=== PATIENT | female | born 1940 | race Caucasian/White ===

== ENCOUNTER 2017-03-11 08:44 | Day surgery (SDC) | payer MEDICARE, SELFPAY ==
[2017-03-11] VITALS (7 sets, daily range): BP systolic 113–131; BP diastolic 54–69; PULSE 58–64; RESP 16–18; TEMP 36.1–36.4; O2SAT 94–100; BMI 32.3
--- NOTE | 2017-03-11 08:59 | EKG12_ITS ---
Test Reason : PREOP Blood Pressure : / mmHG Vent. Rate : 060 BPM Atrial Rate : 060 BPM P-R Int : 158 ms QRS Dur : 072 ms QT Int : 422 ms P-R-T Axes : 046 007 028 degrees QTc Int : 422 ms Normal sinus rhythm Low voltage QRS Abnormal ECG Confirmed by DESTINY ALEGRE ([id number]), editor house organ BRITTNEY MCMAHAN ([id number] on 03/17/2017 1:28:12 PM Referred By: Barry Lares Confirmed By:DESTINY ALEGRE
[2017-03-11] MEDS: Bupivacaine Mpf 0.5% 30 ML VIAL (09:04)
[2017-03-11 09:15] LABS: Hematocrit 37.5 % (37-47); Hemoglobin 12.2 g/dl (12.0-15.0); Mean Corp Hgb Conc 32.5 g/gl (32-36); Mean Corpuscular Volume 92.4 fL (81-99); Platelet Count 213 K/mm3 (150-450); RBC Distribution Width CV 12.8 % (11.6-14.6); RBC Distribution Width SD 42.2 fl (35.1-43.9); Red Blood Count 4.06 M/mm3 (4.2-5.4); White Blood Count 5.7 K/mm3 (4.4-11.0)
[2017-03-11 09:18] LABS: Scan Indicated on CBC? Y/N NO
[2017-03-11 09:28] LABS: Anion Gap 7 (5-15); BUN 16 mg/dL (7-18); BUN/Creat Ratio 13.9 RATIO (10-20); Calcium,Total 9.2 mg/dL (8.5-10.1); Chloride 107 mmol/L (98-107); Creatinine, Serum 1.15 mg/dL (0.55-1.02); EST Glomerular Filtration Rate 49 mL/min (>60); Est Glom Filt Rate - Afr Amer 59 mL/min (>60); Glucose 128 mg/dL (70-110); Potassium 5.2 mmol/L (3.5-5.1); Sodium Level 141 mmol/L (136-145)
--- NOTE | 2017-03-11 09:59 | PCM.DC.GS ---
Discharge Diet: Light diet - advance as tolerated - if you have questions about your diet instructions, please talk to you doctor. Discharge Activity: May Not Drive - for 1 week or while taking narcotic pain medicine. May shower in (days): 1 Lifting Restrictions: 10 pounds Call your doctor if your incision/area has: Continuous Slow Oozing, Sudden Increased Bleeding, Increased Pain/ Swelling, Increased Redness, Foul Smelling Discharge Call your doctor if you observe: Fever of 101 or Higher Suture Line Care: Avoid Pulling/Pushing, Avoid Pinching/Bending Additional Dressing/Incision Instructions:: Change or remove dressing in 4 days. Leave steri-strips in place for 1 week. Allergies/Adverse Reactions: Allergies nitrofurantoin [From Macrodantin] Adverse Reaction (Verified 03/10/17 08:59) Other Medications to take at Discharge Biotin 5,000 mcg PO DAILY 01/31/17 Cholecalciferol (Vitamin D3) [Vitamin D3] 1,000 unit PO DAILY 01/31/17 Folic Acid 0.4 mg PO DAILY@0800 01/31/17 Gabapentin [Neurontin] 300 mg PO BID 01/31/17 Insulin Glargine,Hum.rec.anlog [Lantus] 20 unit SQ DAILY 01/31/17 Iron Carbonyl [Feosol] 45 mg PO DAILYCM 01/31/17 Lactobacillus Combo No.10 [Probiotic] 1 ea PO DAILY 01/31/17 Losartan Potassium 50 mg PO DAILY 01/31/17 Magnesium 400 mg PO DAILY 01/31/17 Metformin HCl [Metformin HCl ER] 750 mg PO BID 01/31/17 Multivitamin [Daily Multiple Vitamin] 1 ea PO DAILY 01/31/17 Omeprazole 40 mg PO DAILY 01/31/17 Pravastatin [Pravachol] 40 mg PO QHS 01/31/17 Ubidecarenone/Vit E Acetate [Co Q-10 100 mg Softgel] 1 ea PO DAILY 01/31/17 Verapamil HCl [Verapamil ER] 240 mg PO DAILY 01/31/17 Vitamin B Complex 1 ea PO DAILY 01/31/17 Adult Low Dose Aspirin EC 81 mg PO DAILY 03/08/17 Lidocaine/Prilocaine [Lidocaine-Prilocaine Cream] 30 gm TP DAILY PRN PRN #1 cream..g. 03/08/17 Ondansetron HCl [Zofran] 4 mg PO Q8H PRN PRN #30 tab 03/08/17 Om-3/Epa/Dha/Fish Oil/Flax/E [Thera Tears Nutrition Capsule] 1 each PO BID 03/10/17 Hydrocodone Bitart/Apap 5-325 [[place] 5MG-325MG] 1 tablet PO Q6H PRN PRN #6 tablet 03/11/17 The following prescriptions were given: Hydrocodone Bitart/Apap 5-325 [[place] 5MG-325MG] 1 tablet PO Q6H PRN PRN #6 tablet PRN Reason: Pain Primary Care Physician: Aiden Diaz [Primary Care Provider] - Please Follow Up With: Barry Lares MD - [phone] When: You may schedule a post op appointment if concerns arise please
[2017-03-11] MEDS: Cefazolin 2 GM in Syringe IV (10:02)
--- NOTE | 2017-03-11 10:42 | OP.PCM_ITS ---
Problem List (1) Primary cancer of left female breast Status: Acute Report of Operation Date of Procedure: 03/11/17 Pre-Operative Diagnosis: Left breast cancer Post-Operative Diagnosis: Left breast cancer Surgery/Procedure Performed:: Right internal jugular 6 Malaysian PowerPort placement Description of Surgical Findings:: Right internal jugular 6 Malaysian PowerPort placement Timeout and informed consent was obtained. 76-year-old female was taken the operative placement table. Ancef 2 g are given intravenously preoperatively. The right neck and chest were sterilely prepped and draped. 1% lidocaine mixed 50-50 with 0.5% Marcaine was used as a local anesthetic. Throughout the procedure total 20 cc was used. Under ultrasound guidance local was instilled and a micropuncture needle was inserted in the right internal jugular vein. Micropuncture wire inserted. Fluoroscopy demonstrated good position. Then local was instilled down upon the right anterior chest wall. Local was instilled. A transverse incision created and electrocautery dissection was used to create a subtenons pocket. The tubing was tunneled from the chest to the neck. Then micropuncture sheath was replaced over the micropuncture wire. 035 J-wire was inserted. The 6 Malaysian short sheath dilator was inserted. The dilator and wire removed the catheter was advanced to the sheath the sheath was split the catheter was positioned at the SVC atrial junction. The cath was amputated to length and connected to the port secured to the port attachment device. The port was secured in the pocket with interrupted 2-0 silk. The pocket was closed with interrupted 3-0 Vicryl subdermal stitches. The neck was closed with interrupted 5-0 Vicryl. Steri-Strips Telfa OpSite dressings applied. Sponge instrument and needle counts were reported to the surgeon be correct. Blood loss was minimal. She tired procedure well. The port was accessed was flushed with saline and flushed easily and it was flushed with 2 cc of heparinized saline. Blood loss minimal. Specimens none. Drains none. Stat portable chest x-ray is pending. Barry Lares M.D., F.A.C.S. Type of Anesthesia:: Local MAC Anesthesiologist: Fede Velarde
--- NOTE | 2017-03-11 10:50 | RAD_ITS ---
STUDY: X-RAY CHEST REASON FOR EXAM: Female, 76 years old. Port placement. TECHNIQUE: Single AP portable view of the chest. COMPARISON: Comparison is made with prior study dated February 01, 2017. FINDINGS: A right-sided portacatheter has been placed. The tip is in the proximal portion of the superior vena cava. Scattered calcified granulomas. No acute abnormality is seen. There is no demonstrated pleural abnormality. Normal size heart. Normal mediastinum and becka. Normal visualized pulmonary arteries. There is atherosclerotic tortuosity of the aortic arch and descending thoracic aorta. There are diffuse degenerative changes of the visualized thoracic spine. Normal visualized ribs, clavicles, and shoulders. There is no demonstrated abnormality of the visualized soft tissue structures of the upper abdomen. RAD/Chest 1 View (Portable) IMPRESSION: The tip of the right portacatheter is in the proximal portion of the superior vena cava. Electronically Signed: Hernan Cruz MD at 11:53 EST Tel [phone], Service support ,
== END 2017-03-11 12:35 | disposition home or self-care (01) ==
LOC: SDC 08:44 → AC 08:49
PROVIDERS: Anesthesiology; Family Provider Family Medicine; PCP Family Medicine; Visit Provider Surgery
PROC: (CPT 36561; principal; 2017-03-11 09:00)
DX: C50.912 Malignant neoplasm of unspecified site of left female breast (principal); I49.9 Cardiac arrhythmia, unspecified; I10 Essential (primary) hypertension; K21.9 Gastro-esophageal reflux disease without esophagitis; E11.9 Type 2 diabetes mellitus without complications; Z79.4 Long term (current) use of insulin; Z79.82 Long term (current) use of aspirin; Z79.899 Other long term (current) drug therapy
CPT/HCPCS: 36561; 36415; 71045; 77001; 80048; 85027; 93005; J7120; C1769; C1788

== ENCOUNTER 2017-06-10 19:45 | Emergency (ER) | payer MEDICARE, OTHER, SELFPAY ==
--- NOTE | 2017-06-10 20:35 | RAD_ITS ---
STUDY: X-RAY CHEST REASON FOR EXAM: Female, 76 years old. Fever TECHNIQUE: Frontal and lateral views of the chest COMPARISON: 03/11/2017 FINDINGS: There is a right-sided port with its tip in the superior vena cava. The lungs are clear. There are no pleural effusions. There is no pneumothorax. The heart is normal in size. The visualized osseous structures are within normal limits. RAD/Chest PA and Lateral IMPRESSION: No acute thoracic pathology. Electronically Signed: Nilton De La Rosa, at 21:04 EDT Tel , Service support ,
[2017-06-10 23:31] LABS: Mucous, Urine 0 SEEN /hpf (<or=2+); Red Blood Cells-Urine 0 SEEN /hpf (0-5); Squamous Epithelial Cells - UA 0 SEEN /hpf (5-10)
[2017-06-10 23:34] LABS: Color, Urine Yellow (Yellow); Glucose, Dipstick Normal (Normal); Ketone-Dipstick Negative (Negative); Urine Bilirubin Dipstick Negative (Negative); Urine Clarity Clear (Clear)
[2017-06-10 23:35] LABS: Bacteria RARE /hpf (None Seen); Leukocyte Esterase-Dipstick 500 /ul (Negative); Nitrite-Dipstick Negative (Negative); Occult Blood-Urine 10 /ul (Negative); Protein-Dipstick Negative (Negative); Urine Urobilinogen Normal (Normal); White Blood Cells 5-10 SEEN /hpf (0-5)
--- NOTE | 2017-06-11 00:29 | ED.VISSUMM ---
- ER Visit Summary Date of Service: 06/11/17 Chief Complaint: Fever History of Present Illness: The patient is a 76 F presents with reported chills today. Subjective fever, T-max 99.7 orally prior to arrival. No meds taken. Patient history of breast cancer on the left, chemo started March 14. She is on her fifth treatment, last treatment was a new treatment. She was given Neulasta 2 days ago. No cough. No urinary symptoms. States has generalized weakness and arthralgias in her knees. History of bilateral total knee arthroplasty. No rash. She did not contact her oncologist, Dr. Cisneros prior to coming. Did report mild sore throat with treatment. Physical Examination: General: Alert and oriented ?3, no acute distress HEENT: Normocephalic, atraumatic. Moist mucosa membranes. Mild posterior pharyngeal erythema. No trismus. Airway patent. Neck: supple, nontender. Cardiovascular: Regular rate and rhythm, no murmurs Respiratory: Normal breath sounds, symmetric, no distress Abdomen: Soft, nontender, nondistended Extremities: Nontender, no edema, pulses intact ?4 Neuro: no focal neurological deficits. Test Results: White count 10.3. Absolute neutrophil 10.2. Bands of 6. Chest x-ray negative. Urine noted 500 leukocytes white blood cell count 5-10. Blood and urine cultures pending. Emergency Department Course and Treatment: Patient latter-day 99.1 here in the ED. Not technicalyl fever. However with recent chemo, patient neutropenic workup. Results noted findings of urine infection along with 6 of bands. Absolute neutrophils 10.2. Mild redness in the throat. 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 I did end up speaking with nurse practitionerAdela at 0028. She does agree with starting Levaquin for 7 days. Patient will call the office on Tuesday for follow-up. She return if any worsening symptoms. Treatment Plan: [] Disposition: Discharge Impression: 1. UTI 2. Chemotherapy This note was generated with Lopolyation software. It may contain incorrect words, spelling, and punctuation that were not noted in review of the chart prior to signing ED Disposition - Plan for ED Patient: Disposition: Home or Assisted Living Diagnosis: UTI (urinary tract infection), Chemotherapy management, encounter for Instructions: Understanding Chemotherapy Prescriptions: levoFLOXacin tablet [Levaquin tablet] 750 mg PO DAILY #6 tablet Referrals: Aiden Diaz [Primary Care Provider] - Rachna Cisneros MD [STAFF PHYSICIAN] - 3-5 Days
--- NOTE | 2017-06-11 00:32 | ED.DCSUM_ITS ---
- ER Visit Summary Date of Service: 06/11/17 Chief Complaint: Fever History of Present Illness: The patient is a 76 F presents with reported chills today. Subjective fever, T-max 99.7 orally prior to arrival. No meds taken. Patient history of breast cancer on the left, chemo started March 14. She is on her fifth treatment, last treatment was a new treatment. She was given Neulasta 2 days ago. No cough. No urinary symptoms. States has generalized weakness and arthralgias in her knees. History of bilateral total knee arthroplasty. No rash. She did not contact her oncologist, Dr. Cisneros prior to coming. Did report mild sore throat with treatment. Physical Examination: General: Alert and oriented ?3, no acute distress HEENT: Normocephalic, atraumatic. Moist mucosa membranes. Mild posterior pharyngeal erythema. No trismus. Airway patent. Neck: supple, nontender. Cardiovascular: Regular rate and rhythm, no murmurs Respiratory: Normal breath sounds, symmetric, no distress Abdomen: Soft, nontender, nondistended Extremities: Nontender, no edema, pulses intact ?4 Neuro: no focal neurological deficits. Test Results: White count 10.3. Absolute neutrophil 10.2. Bands of 6. Chest x -ray negative. Urine noted 500 leukocytes white blood cell count 5-10. Blood and urine cultures pending. Emergency Department Course and Treatment: Patient episcopal 99.1 here in the ED. Not technicalyl fever. However with recent chemo, patient neutropenic workup. Results noted findings of urine infection along with 6 of bands. Absolute neutrophils 10.2. Mild redness in the throat. 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 I did end up speaking with nurse practitionerAdela at 0028. She does agree with starting Levaquin for 7 days. Patient will call the office on Tuesday for follow-up. She return if any worsening symptoms. Treatment Plan: [] Disposition: Discharge Impression: 1. UTI 2. Chemotherapy This note was generated with Rate Solutionsation software. It may contain incorrect words, spelling, and punctuation that were not noted in review of the chart prior to signing ED Disposition - Plan for ED Patient: Disposition: Home or Assisted Living Diagnosis: UTI (urinary tract infection), Chemotherapy management, encounter for Instructions: Understanding Chemotherapy Prescriptions: levoFLOXacin tablet [Levaquin tablet] 750 mg PO DAILY #6 tablet Referrals: Aiden Diaz [Primary Care Provider] - Rachna Cisneros MD [STAFF PHYSICIAN] - 3-5 Days
[2017-06-11 01:31] LABS: Hematocrit 32.9 % (37-47); Hemoglobin 11.1 g/dl (12.0-15.0); Mean Corp Hgb Conc 33.7 g/gl (32-36); Mean Corpuscular Hgb 32.3 pg (27.0-32.0); Mean Corpuscular Volume 95.6 fL (81-99); Mean Platelet Vol. 9.5 fl (6.2-12.0); POSITIVE COUNT YES; POSITIVE DIFFERENTIAL YES; POSITIVE MORPHOLOGY YES; Platelet Count 122 K/mm3 (150-450); RBC Distribution Width CV 16.6 % (11.6-14.6); RBC Distribution Width SD 55.7 fl (35.1-43.9); Red Blood Count 3.44 M/mm3 (4.2-5.4); White Blood Count 10.2 K/mm3 (4.4-11.0)
[2017-06-11 01:32] LABS: Absolute Neutrophil Count 10.2 X10^3/uL (2.0-7.7); Anion Gap 10 (5-15); BUN 30 mg/dL (7-18); BUN/Creat Ratio 25.4 RATIO (10-20); Calcium,Total 8.5 mg/dL (8.5-10.1); Chloride 107 mmol/L (98-107); Creatinine, Serum 1.18 mg/dL (0.55-1.02); Differential Indicated MANUAL DIFF; EST Glomerular Filtration Rate 47 mL/min (>60); Est Glom Filt Rate - Afr Amer 57 mL/min (>60); Glucose 164 mg/dL (74-106); Potassium 4.4 mmol/L (3.5-5.1); Sodium Level 143 mmol/L (136-145)
[2017-06-11 01:33] LABS: Neutrophil-Band 6 % (0-5); Neutrophil-Segmented 94 % (47-70)
[2017-06-11 01:36] LABS: Total Cells Counted 100 (MANUAL DIFF)
[2017-06-13 10:02] LABS: Pathologist Review Reviewed
== END 2017-06-10 21:11 | disposition home or self-care (01) ==
PROVIDERS: Emergency Provider Emergency Medicine; Family Provider Family Medicine; PCP Family Medicine
DX: N39.0 Urinary tract infection, site not specified (principal); C50.912 Malignant neoplasm of unspecified site of left female breast; Z51.11 Encounter for antineoplastic chemotherapy; E11.9 Type 2 diabetes mellitus without complications; R51 Headache
CPT/HCPCS: 71046; 80048; 81001; 85025; 87040; 87086; 87088; 87186; 99283; A4216

== ENCOUNTER 2017-07-22 14:10 | Outpatient (RCR) | payer MEDICARE, OTHER, SELFPAY | END 2017-08-20 23:59 | LOC: WC 14:10 | PROVIDERS: Family Provider Family Medicine; PCP Family Medicine; Visit Provider Family Medicine | DX: Z09 Encounter for follow-up examination after completed treatment for conditions other than malignant neoplasm (principal) ==

== ENCOUNTER → 2017-08-23 11:16 | Outpatient (CLI) | payer MEDICARE, OTHER, SELFPAY ==
[2017-08-09 10:03] VITALS: BMI 31.4
--- NOTE | 2017-08-23 11:19 | BD_ITS ---
STUDY: DUAL ENERGY X-RAY ABSORPTIOMETRY / DXA REASON FOR EXAM: Female, 77 years old. The patient is postmenopausal. History of breast cancer. Loss of height. TECHNIQUE: Bone Mineral Density (BMD) measurements of lumbar spine and bilateral hips were obtained. COMPARISON: None. FINDINGS: Lumbar Spine (L1-L4): g/cm2 (1.614) / T-score (3.7) / Z-score (5.5) Findings are suggestive of normal bone density with a low fracture risk. Left Femur Total: g/cm2 (1.247) / T-score (1.9) / Z-score (3.7) Left Femoral Neck: g/cm2 (1.139) / T-score (0.7) / Z-score (2.7) Right Femur Total: g/cm2 (1.179) / T-score (1.4) / Z-score (3.) Right Femoral Neck: g/cm2 (1.07) / T-score (0.2) / Z-score (2.2) BD/Dexa Bone Density Study IMPRESSION: The patient is considered normal as outlined below according to World Maikel Organization (WHO) criteria with a low fracture risk. Reference Information: The T-score is the number of standard deviations above or below the standard which is normal for young adults at their peak bone mineral density. The World Health Organization (WHO) interprets the T-scores as follows: Above -1 Normal bone density Between -1 and -2.5 Osteopenia Equal to / or below -2.5 Osteoporosis As a practical clinical guideline, osteopenia may be graded as follows: Mild -1 through -1.5 Moderate -1.6 through -2.0 Severe -2.1 through -2.4 The Z-score is the number of standard deviations above or below age-matched controls. A Z-score of less than -1.5 would be considered abnormal. References: 1. NIH Osteoporosis and Related Bone Diseases http://www.osteo.org 2. International Society for Clinical Densitometry http://www.iscd.org 3. National Osteoporosis Foundation http://www.nof.org Electronically Signed: Hernan Cruz MD at 15:38 EDT Tel [phone], Service support ,
== END ==
PROVIDERS: Family Provider Family Medicine; PCP Family Medicine; Visit Provider Internal Medicine Hematology & Oncology
DX: Z78.0 Asymptomatic menopausal state (principal); C50.912 Malignant neoplasm of unspecified site of left female breast; C77.9 Secondary and unspecified malignant neoplasm of lymph node, unspecified
CPT/HCPCS: 77080

== ENCOUNTER → 2017-10-04 17:04 | Outpatient (CLI) | payer MEDICARE, OTHER, SELFPAY ==
[2017-08-09 10:03] VITALS: BMI 31.4
== END ==
PROVIDERS: Family Provider Family Medicine; PCP Family Medicine; Visit Provider Urology
DX: N39.0 Urinary tract infection, site not specified (principal)
CPT/HCPCS: 87086; 87088

== ENCOUNTER → 2017-10-05 09:16 | Outpatient (CLI) | payer MEDICARE, SELFPAY ==
[2017-08-09 10:03] VITALS: BMI 31.4
== END ==
PROVIDERS: Family Provider Family Medicine; PCP Family Medicine; Visit Provider Urology
DX: N39.0 Urinary tract infection, site not specified (principal)
CPT/HCPCS: 76770

== ENCOUNTER → 2018-02-09 09:47 | Outpatient (CLI) | payer MEDICARE, SELFPAY ==
[2017-08-09 10:03] VITALS: BMI 31.4
[2017-12-06 11:26] VITALS: BMI 30.4
--- NOTE | 2018-02-09 09:51 | BI_ITS ---
MAMMOGRAPHY - BILATERAL SCREENING REASON FOR EXAM: Female, 77 years old. Routine annual screening examination. PERTINENT HISTORY: Personal history of breast cancer. Prior left lumpectomy with radiation therapy and chemotherapy. Mother with breast cancer. Sister with breast cancer. Grandmother with breast cancer. TECHNIQUE: Digital bilateral breast kaylin (3D mammographic acquisition) in the CC and MLO projections. 2-D mediolateral oblique (MLO) and craniocaudad (CC) views of both breasts were obtained. CAD: Full Field Digital Mammography with Computer Added Detection was performed. COMPARISON: Comparison is made with prior examination dated December 31, 2016 and April 03, 2015. FINDINGS: Breast Composition: The breasts are heterogeneously dense, which may obscure small masses. There are no dominant masses or suspicious calcifications. The patient is status post left lumpectomy in the mid lower medial aspect of the left breast. There is evidence of postoperative scarring. No new mass lesion or clustering calcification is seen. A surgical clip is seen in the left axillary region. There is evidence of a postoperative stranding of the left axilla. No other significant abnormalities are identified. BI/SCREENING MAMM (CAD), BILAT IMPRESSION: Status post left lumpectomy with postoperative scarring. Postoperative scarring seen in the left axillary region. ASSESSMENT CATEGORY: BIRADS Category 2: Benign. A letter regarding these results will be sent to the patient by the facility within 30 days. Approximately 10% of breast cancers are not detected by mammography. A normal mammogram should not delay biopsy of a clinically suspicious abnormality. [id number] Electronically Signed: Hernan Cruz MD at 15:20 EST Tel [phone], Service support ,
== END ==
PROVIDERS: Family Provider Family Medicine; PCP Family Medicine; Visit Provider Student in an Organized Health Care Education/Training Program
DX: Z12.31 Encounter for screening mammogram for malignant neoplasm of breast (principal); C50.912 Malignant neoplasm of unspecified site of left female breast
CPT/HCPCS: 77063; 77067

== ENCOUNTER → 2019-02-15 10:36 | Outpatient (CLI) | payer MEDICARE, SELFPAY ==
[2017-08-09 10:03] VITALS: BMI 31.4
[2018-09-14 10:37] VITALS: BMI 31.2
[2018-12-26 10:59] VITALS: BMI 31.7
--- NOTE | 2019-02-15 10:40 | BI_ITS ---
MAMMOGRAPHY - BILATERAL SCREENING 3-D TOMOSYNTHESIS REASON FOR EXAM: Female, 78 years old. Screening mammogram. PERTINENT HISTORY: History of left lumpectomy with radiation therapy and chemotherapy. History of breast cancer in daughter at age 56 and mother in 6 decade.. TECHNIQUE: 2-D mammograms and 3-D Tomosynthesis of the breast (s) were performed. CAD was performed. COMPARISON: February 09, 2018, December 31, 2016 FINDINGS: The breast composition is almost entirely fat. Stable deformity of the left breast from the lumpectomy and radiation therapy. Scattered benign calcifications are seen. No dense spiculated masses or suspicious microcalcifications are identified. No architectural distortion is identified. There is no skin thickening or retraction. There has been no significant change since the prior study. BI/SCREEN MAMM (CAD) W/EDYTA BILAT IMPRESSION: No mammographic signs of malignancy. Routine yearly mammograms recommended. ASSESSMENT CATEGORY: BIRADS Category 2: Benign. A letter regarding these results will be sent to the patient by the facility within 30 days. FOLLOW UP RECOMMENDATION: Yearly follow up mammogram recommended. (A) Approximately 10% of breast cancers are not detected by mammography. A normal mammogram should not delay biopsy of a clinically suspicious abnormality. Electronically Signed: Esau Disla MD at 15:29 EST , Service support ,
== END ==
PROVIDERS: Family Provider Family Medicine; PCP Family Medicine; Referring Provider Student in an Organized Health Care Education/Training Program; Visit Provider Student in an Organized Health Care Education/Training Program
DX: Z12.31 Encounter for screening mammogram for malignant neoplasm of breast (principal); Z80.3 Family history of malignant neoplasm of breast
CPT/HCPCS: 77063; 77067

== ENCOUNTER → 2019-08-28 | Outpatient (CLI) | payer MEDICARE, SELFPAY ==
[2017-08-09 10:03] VITALS: BMI 31.4
[2019-07-24 10:26] VITALS: BMI 28.3
--- NOTE | 2019-08-28 12:25 | BD_ITS ---
STUDY: DUAL ENERGY X-RAY ABSORPTIOMETRY / DXA REASON FOR EXAM: Female, 79 years old. Age of surgical giovana 50. Pat is 158.4# and 62.5 and quot; a loss of 1 and quot; per pat. Past use of fosomax. Hx of 1 steroid injection. Past ues of an pre-Hblocker. Hx of left breast CA. Type II diabetic, takes metformin and insulin. Takes Gabapentin. Takes 2000mg calcium and a multi-vit. Exercises a little. TECHNIQUE: Bone Mineral Density (BMD) measurements of lumbar spine and bilateral hips were obtained. COMPARISON: Comparison is made with prior examination dated August 23, 2017. FINDINGS: Lumbar Spine (L1-L4): g/cm2 (1.643) / T-score (4.0) / Z-score (5.8) Findings are suggestive of normal bone density with a low fracture risk. Left Femur Total: g/cm2 (1.206) / T-score (1.6) / Z-score (3.5) Left Femoral Neck: g/cm2 (1.127) / T-score (0.6) / Z-score (2.8) Right Femur Total: g/cm2 (1.158) / T-score (1.2) / Z-score (3.1) Right Femoral Neck: g/cm2 (1.063) / T-score (0.2) / Z-score (2.3) The T-Scores on the most recent prior examination were: Lumbar Spine (L1-L4): There has been improvement of bone density since the previous examination. Left Femur Total: which represents a worsening of 3.3%. Right Femur Total: which represents a worsening of 1.8%. BD/Dexa Bone Density Study IMPRESSION: The patient is considered normal as outlined below according to World Maikel Organization (WHO) criteria with a low fracture risk. There has been worsening of bone density since the previous examination. Reference Information: The T-score is the number of standard deviations above or below the standard which is normal for young adults at their peak bone mineral density. The World Health Organization (WHO) interprets the T-scores as follows: Above -1 Normal bone density Between -1 and -2.5 Osteopenia Equal to / or below -2.5 Osteoporosis As a practical clinical guideline, osteopenia may be graded as follows: Mild -1 through -1.5 Moderate -1.6 through -2.0 Severe -2.1 through -2.4 The Z-score is the number of standard deviations above or below age-matched controls. A Z-score of less than -1.5 would be considered abnormal. References: 1. NIH Osteoporosis and Related Bone Diseases http://www.osteo.org 2. International Society for Clinical Densitometry http://www.iscd.org 3. National Osteoporosis Foundation http://www.nof.org Electronically Signed: Hernan Cruz, at 14:50 EDT , Service support ,
== END | disposition home or self-care (01) ==
LOC: OPBD 12:24
PROVIDERS: PCP Family Medicine; Referring Provider Internal Medicine Hematology & Oncology; Visit Provider Internal Medicine Hematology & Oncology
DX: M81.0 Age-related osteoporosis without current pathological fracture (principal); C50.912 Malignant neoplasm of unspecified site of left female breast
CPT/HCPCS: 77080

== ENCOUNTER → 2020-02-27 09:27 | Outpatient (CLI) | payer MEDICARE, SELFPAY ==
[2017-08-09 10:03] VITALS: BMI 31.4
[2019-07-24 10:26] VITALS: BMI 28.3
--- NOTE | 2020-02-27 09:44 | BI_ITS ---
MAMMOGRAPHY - BILATERAL DIAGNOSTIC REASON FOR EXAM: Female, 79 years old. Left breast lump. PERTINENT HISTORY: Personal history of breast cancer. Prior left lumpectomy with radiation treatment. Sister with breast cancer. Grandmother with breast cancer. TECHNIQUE: Digital bilateral breast kaylin (3D mammographic acquisition) in the CC and MLO projections. 2-D mediolateral oblique (MLO) and craniocaudad (CC) views of both breasts were obtained. CAD: Full Field Digital Mammography with Computer Added Detection was performed. COMPARISON: Comparison is made with prior examination dated 02/15/2019 and 02/09/2018. FINDINGS: Breast Composition: The breasts are heterogeneously dense, which may obscure small masses. There are no dominant masses or suspicious calcifications. The patient is once again status post lumpectomy in the medial inferior aspect of the left breast with postoperative changes and overlying skin thickening. Faint calcifications are seen in the anterior slightly upper retroareolar region of the left breast. Correlation with ultrasound is recommended. A left-sided pacemaker device is seen. No other significant abnormalities are identified. BI/DIAG MAMM W/CAD, BILAT IMPRESSION: Status post left lumpectomy with resultant deformity and skin thickening with the faint calcifications correspond to the palpable abnormality. Correlation with ultrasound is recommended. ASSESSMENT CATEGORY: BIRADS Category 0: Incomplete. Need additional imaging evaluation. A letter regarding these results will be sent to the patient by the facility within 30 days. Approximately 10% of breast cancers are not detected by mammography. A normal mammogram should not delay biopsy of a clinically suspicious abnormality. Electronically Signed: Hernan Cruz, at 11:21 EST , Service support ,
--- NOTE | 2020-02-27 10:41 | US_ITS ---
STUDY: ULTRASOUND BREAST - RIGHT REASON FOR EXAM: Female, 79 years old. Palpable lump in the right breast. TECHNIQUE: Axial and longitudinal images of the RIGHT breast were performed with a high resolution ultrasound transducer. # OF IMAGES: 27 COMPARISON: Comparison is made with prior mammogram done earlier in the day. FINDINGS: RIGHT Breast: The palpable abnormality corresponds to a 9 mm x 10 mm x 4 mm hypoechoic nodule at the 12 o''clock position of the breast at 5 cm from the nipple. Microcalcifications are seen anterior to this nodular density. US/Breast Limited Unilateral IMPRESSION: 9 mm x 10 mm x 4 mm hypoechoic nodule at the 12 o''clock position the breast at 5 cm from nipple. This corresponds to the palpable abnormality. Microcalcifications are seen anterior to this. A biopsy is recommended. ASSESSMENT CATEGORY: BIRADS Category 4: Suspicious - Biopsy Should Be Considered. A letter regarding these results will be sent to the patient by the facility within 30 days. Electronically Signed: Hernan Cruz, at 13:49 EST , Service support ,
== END ==
PROVIDERS: PCP Family Medicine; Referring Provider Student in an Organized Health Care Education/Training Program; Visit Provider Student in an Organized Health Care Education/Training Program
DX: N63.20 Unspecified lump in the left breast, unspecified quadrant (principal); Z85.3 Personal history of malignant neoplasm of breast
CPT/HCPCS: 76642; 77062; 77066; G0279

== ENCOUNTER → 2020-03-04 15:00 | Outpatient (CLI) | payer MEDICARE, SELFPAY ==
[2017-08-09 10:03] VITALS: BMI 31.4
--- NOTE | 2020-03-04 | BRBX_PTH ---
PATIENT: FARIBA LUCAS LOC: [facility] U#:[id number] AGE/SX: 84/F ROOM: RE03/04/[address]: Dr. Barry Lares MD : 1940 BED: DIS: SPEC #: [id number] RECD: 03/04/20 16:35 STATUS: COURTNEY JO ANN #: [id number] HEYDI: 03/04/20 00:[address]: Barry Lares DEPT: SURGICAL PATHOLOGY RECD BY: Dequan Dunbar ENTERED: 03/05/20 10:11 SP TYPE: BREAST BX OTHR DR: Dr. Aiden Diaz MD Tissues: Left breast, NOS Procedures: Surgery Specimen Level IV HEADER OPERATION: Left breast biopsy PRE-OP DIAGNOSIS: Abnormal left breast ultrasound TISSUE SUBMITTED: Left breast tissue MICROSCOPIC DIAGNOSIS Left breast, core biopsy: Collagenized breast tissue. Benign ductal elements. No evidence of malignancy. AM:vianca 03/06/2020 MICROSCOPIC DESCRIPTION Slides are reviewed. GROSS DESCRIPTION Received in fixative is one container labeled with the patient's name and designated left breast. The specimen consists of two cores of light bhatt soft tissue. Each core has an average length of 1.2 cm and a maximal diameter of 0.2 cm. The specimen is totally submitted in one cassette. / AM:vianca 03/05/20 TC:5 CPT: 50468
== END ==
PROVIDERS: PCP Family Medicine; Visit Provider Surgery
DX: R92.8 Other abnormal and inconclusive findings on diagnostic imaging of breast (principal)
CPT/HCPCS: 88305

== ENCOUNTER 2020-04-30 07:47 | Day surgery (SDC) | payer MEDICARE, SELFPAY ==
[2017-08-09 10:03] VITALS: BMI 31.4
--- NOTE | 2020-04-29 09:10 | EKG12_ITS ---
Test Reason : PRE SURGERY Blood Pressure : / mmHG Vent. Rate : 082 BPM Atrial Rate : 082 BPM P-R Int : 174 ms QRS Dur : 160 ms QT Int : 484 ms P-R-T Axes : 096 -58 071 degrees QTc Int : 565 ms AV dual-paced rhythm Abnormal ECG Confirmed by NELIDA ARREDONDO, SHEFALI ([id number]), film or videotape editor SHAN KRISHNAN ([id number]) on 04/30/2020 11:20:03 AM Referred By: Barry Lares Confirmed By:SHEFALI KRAUSE MD
[2020-04-29 10:20] LABS: Hematocrit 38.9 % (37-47); Hemoglobin 12.4 g/dL (12.0-15.0); Mean Corp Hgb Conc 31.9 g/dL (32-36); Mean Corpuscular Hgb 30.7 pg (27.0-32.0); Mean Corpuscular Volume 96.3 fL (81-99); Mean Platelet Vol. 9.6 fl (6.2-12.0); Platelet Count 192 K/mm3 (150-450); RBC Distribution Width CV 14.3 % (11.6-14.6); RBC Distribution Width SD 50.3 fl (35.1-43.9); Red Blood Count 4.04 M/mm3 (4.2-5.4); White Blood Count 5.3 K/mm3 (4.4-11.0)
[2020-04-29 10:43] LABS: Anion Gap 4 (5-15); BUN 18 mg/dL (7-18); BUN/Creat Ratio 12.2 RATIO (10-20); Calcium,Total 9.3 mg/dL (8.5-10.1); Chloride 103 mmol/L (98-107); Creatinine, Serum 1.48 mg/dL (0.55-1.02); EST Glomerular Filtration Rate 36 mL/min (>60); Est Glom Filt Rate - Afr Amer 44 mL/min (>60); Glucose 225 mg/dL (74-106); Potassium 3.9 mmol/L (3.5-5.1); Sodium Level 140 mmol/L (136-145)
[2020-04-30 08:24] VITALS: BP 128/70; PULSE 66; RESP 16; TEMP 36.2; O2SAT 100; BMI 25.6
[2020-04-30 08:51] LABS: Bedside Glucose 136 mg/dL (70-110)
[2020-04-30] MEDS: Lactated Ringers 1,000 ML 100 ML IV (08:51)
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
--- NOTE | 2020-04-30 09:24 | DCINST_ITS ---
Discharge Diet: No Restrictions Discharge Activity: May Not Drive - for 2-3 days or while taking narcotic pain meds. May shower in (days): 1 - remove bulky tape dressing prior to shower Lifting Restrictions: 10 pounds for 1 week. Call your doctor if your incision/area has: Continuous Slow Oozing, Sudden Increased Bleeding Call your doctor if you observe: Fever of 101 or Higher Suture Line Care: Avoid Pulling/Pushing, Avoid Pinching/Bending Remove Dressing in (days):: 1 - Remove bulky dressing tomorrow. May leave any opsite dressing for 3-4 days. Keep dressing in place until your follow-up appointment. Additional Dressing/Incision Instructions:: Remove bulky dressing tomorrow. May leave any opsite dressing for 3-4 days. Leave the steri strips on for one week please Allergies/Adverse Reactions: Allergies levofloxacin [From Levaquin] Adverse Reaction (Severe, Verified 04/28/20 14:05) Nausea/Vom/Diarrhea nitrofurantoin [From Macrodantin] Adverse Reaction (Intermediate, Verified 04/28/20 14:05) Other miscarriaged Medications to take at Discharge Cholecalciferol (Vitamin D3) [Vitamin D3] 1,000 unit PO DAILY 01/31/17 Gabapentin [Neurontin] 600 mg PO TID 01/31/17 Insulin Glargine,Hum.rec.anlog [Lantus] 20 unit SQ DAILY 01/31/17 Magnesium 400 mg PO DAILY 01/31/17 Metformin HCl [Metformin HCl ER] 750 mg PO DAILY 01/31/17 Multivitamin [Daily Multiple Vitamin] 1 ea PO DAILY 01/31/17 Omeprazole 40 mg PO DAILY 01/31/17 Ubidecarenone/Vit E Acet [Co Q-10 100 mg Softgel] 1 ea PO DAILY 01/31/17 Vitamin B Complex 1 ea PO DAILY 01/31/17 Prednisone 1 mg PO DAILY 09/14/18 Rivaroxaban [Xarelto] 15 mg PO DAILY 02/23/19 Amiodarone HCl [Pacerone] 200 mg PO DAILY 11/27/19 Atorvastatin Calcium 80 mg PO DAILY 11/27/19 Clopidogrel Bisulfate [Plavix] 75 mg PO DAILY 11/27/19 Furosemide [Lasix] 20 mg PO DAILY 11/27/19 Metoprolol Succinate [Toprol Xl] 25 mg PO DAILY 11/27/19 Anastrozole [Arimidex] 1 mg PO DAILY 04/28/20 Omeg3/Epa/Dha/Fish Oil/Flax/E [Thera Tears Nutrition Capsule] 1 ea PO BID 04/28/20 Hydrocodone Bitart/Apap 5-325 [[place] 5MG-325MG] 1 tablet PO Q6H PRN PRN 2 Days # 5 tablet 04/30/20 The following prescriptions were given: Hydrocodone Bitart/Apap 5-325 [[place] 5MG-325MG] 1 tablet PO Q6H PRN PRN 2 Days #5 tablet PRN Reason: Pain Transmission Status: Sent to [facility] Primary Care Physician: Aiden Diaz MD [Primary Care Provider] - Please Follow Up With: Barry Lares MD When: [phone] for appt. in 7-10 days
--- NOTE | 2020-04-30 09:54 | BI_ITS ---
SURGICAL LEFT BREAST SPECIMEN RADIOGRAPH CLINICAL: Document presence of microcalcifications in biopsy specimen. FINDINGS: Specimen shows presence of microcalcifications and biopsy clip. Pathology is pending and an addendum to the biopsy report will be performed after the final pathologic diagnosis is rendered. Electronically Signed: Vianey Rodriges MD at 10:55 EST Tel , Service support , BI/Breast Biopsy Specimen
--- NOTE | 2020-04-30 09:59 | BREAST_PTH ---
PATIENT: FARIBA LUCAS LOC: [facility] U#:[id number] AGE/SX: 79/F ROOM: RE04/30/[address]: Dr. Barry Lares MD : 1940 BED: DIS: 04/30/2020 SPEC #: [id number] RECD: 04/30/20 10:04 STATUS: COURTNEY REChelsea #: [id number] HEYDI: 04/30/20 09:[address]: Barry Lares DEPT: SURGICAL PATHOLOGY RECD BY: Becki Hinds ENTERED: 04/30/20 11:01 SP TYPE: BREAST OTHR DR: Dr. Aiden Diaz MD Tissues: Breast, NOS Procedures: Surgery Specimen Level V HEADER OPERATION: Excision, breast biopsy PRE-OP DIAGNOSIS: Mass of left breast TISSUE SUBMITTED: Left breast mass transverse ellipse, suture lateral aspect of ellipse MICROSCOPIC DIAGNOSIS Left breast mass, excisional biopsy: Extensive dense fibrosis. Changes consistent with previous biopsy sites with focal dystrophic calcifications (old and recent). Hyalinized fibroadenoma with focal calcification (0.5 cm in greatest dimension). Negative for atypia or malignancy. SJ:vianca 05/02/2020 COMMENT Please make reference to previous specimens ([id number]) left breast, lumpectomy with diagnosis of invasive ductal carcinoma and ([id number]) left breast, core biopsy with diagnosis of collagenized breast tissue, benign ductal elements and no evidence of malignancy. Case has been reviewed in consultation with Dr. Veliz who concurs with the above diagnosis. IDC:AM MICROSCOPIC DESCRIPTION Slides are reviewed. GROSS DESCRIPTION Received in fixative is one container labeled with the patient's name and designated left breast. The specimen consists of a lumpectomy specimen measuring 5.5 x 5 x 3 cm and weighing 35 gm. An ellipse of unremarkable skin measuring 3.6 x 1.5 cm is present. The specimen is oriented and differentially inked as follows: anterior - yellow, posterior - black, superior - blue, inferior - green, medial - red and lateral - orange. Serial sections reveal a blood-filled biopsy cavity measuring 2.2 x 1 x 0.8 cm. No distinct mass lesion is identified. The majority of the tissue is dense, white-bhatt in color. Kettle Loader sections are submitted in 12 cassettes as follows: 1 & 2 - skin and perpendicular margins, 3-8 - biopsy cavity and surrounding soft tissue, 9-12 - contact representative sections of uninvolved breast parenchyma adjacent to and away from biopsy cavity. / AM:vianca 05/01/20 TC:5 CPT: 20353
[2020-04-30] MEDS: Bupivacaine Mpf 0.5% 30 ML VIAL (10:10)
--- NOTE | 2020-04-30 10:15 | OP.PCM_ITS ---
Problem List (1) Mass of left breast Status: Acute Report of Operation Date of Procedure: 04/30/20 Pre-Operative Diagnosis: Upper outer left breast mass Post-Operative Diagnosis: Same Surgery/Procedure Performed:: Excisional biopsy upper outer left breast Description of Surgical Findings:: Timeout informed consent was obtained. 79-year-old female was taken to the operating place upon the table underwent general anesthesia. The left breast was prepped with chlorhexidine. Ioban was used to assist with draping. 0.5% Marcaine was used as a local anesthetic. Throughout the procedure total 30 cc was used. A transverse elliptical incision to incorporate the dermal involvement was performed. This was at the 2 o'clock position upper outer left breast +4 cm. Sharp dissection performed down in the subcutaneous tissue with and electrocautery dissection performed down into the breast tissue. A generous complete excision was performed. Hemostasis was obtained with several interru pted 3-0 Vicryl suture ligatures. Electrocautery was the additionally used were indicated. A silk suture was placed in the lateral aspect of this medial lateral shaped ellipse. Mammographic imaging demonstrated a previous marking clip to be in good position. The wound was then closed in layers with 3-0 Vicryl and then a running septic or 4-0 Monocryl. Steri-Strips Telfa OpSite bulky dry dressings applied. Sponge and instrument and needle counts were reported to the surgeon to be correct. Specimen left breast mass. Drains none. Blood loss minimal. The patient was taken to the recovery area in satisfactory vision without apparent complication. Barry Lares M.D., F.A.C.S. Type of Anesthesia:: General Anesthesiologist: Rick Parnell
[2020-04-30 10:26] VITALS: BP 128/70; BP 149/67; PULSE 60; RESP 16; TEMP 36; O2SAT 100
[2020-04-30 10:30] VITALS: BP 128/70; BP 142/69; PULSE 60; RESP 16; O2SAT 100
[2020-04-30 10:41] LABS: Bedside Glucose 118 mg/dL (70-110)
[2020-04-30 10:45] VITALS: BP 128/70; BP 130/64; PULSE 60; RESP 16; O2SAT 100
[2020-04-30 10:52] VITALS: BP 128/70; BP 139/66; PULSE 60; RESP 16; TEMP 36.2; O2SAT 100
[2020-04-30] MEDS: Acetaminophen 325 MG Tablet 650 MG PO (11:59)
[2020-04-30 12:30] VITALS: BP 123/59; BP 128/70; PULSE 60; RESP 16; TEMP 21.1; O2SAT 100
== END 2020-04-30 12:51 | disposition home or self-care (01) ==
LOC: SDC 07:47 → AC 07:47
PROVIDERS: PCP Family Medicine; Referring Provider Surgery; Visit Provider Surgery
PROC: (CPT 19120; principal; 2020-04-30 09:45)
DX: D24.2 Benign neoplasm of left breast (principal); N60.32 Fibrosclerosis of left breast; M19.90 Unspecified osteoarthritis, unspecified site; K21.9 Gastro-esophageal reflux disease without esophagitis; I10 Essential (primary) hypertension; E11.9 Type 2 diabetes mellitus without complications; I48.91 Unspecified atrial fibrillation; Z85.3 Personal history of malignant neoplasm of breast; Z20.822 Contact with and (suspected) exposure to COVID-19; Z79.899 Other long term (current) drug therapy; Z95.5 Presence of coronary angioplasty implant and graft; Z79.02 Long term (current) use of antithrombotics/antiplatelets; Z79.4 Long term (current) use of insulin
CPT/HCPCS: 19120; 36415; 76098; 80048; 82962; 85027; 87426; 88307; 93005; C9803; J7120

== ENCOUNTER 2021-03-10 14:01 | Outpatient (CLI) | payer MEDICARE, SELFPAY ==
[2017-08-09 10:03] VITALS: BMI 31.4
--- NOTE | 2021-03-10 14:04 | BI_ITS ---
MAMMOGRAPHY - BILATERAL SCREENING REASON FOR EXAM: Female, 80 years old. Routine annual screening examination. PERTINENT HISTORY: Personal history of breast cancer. Prior left lumpectomy with radiation and chemotherapy. Sister with breast cancer. Mother with breast cancer. Grandmother with breast cancer. TECHNIQUE: Digital bilateral breast edyta (3D mammographic acquisition) in the CC and MLO projections. 2-D mediolateral oblique (MLO) and craniocaudad (CC) views of both breasts were obtained. CAD: Full Field Digital Mammography with Computer Added Detection was performed. COMPARISON: Comparison is made with prior study dated 09/15/2020 and 02/15/2019. FINDINGS: Breast Composition: The breasts are heterogeneously dense, which may obscure small masses. There are no dominant masses or suspicious calcifications. The patient is status post lumpectomy in the retroareolar medial aspect of the left breast with resultant breast deformity and overlying skin thickening. Scattered secretory calcifications and microcalcifications in the retroareolar region of the left breast. No cluster is seen. No other significant abnormalities are identified. BI/SCRN MAMM (CAD)W/EDYTA BILAT IMPRESSION: Stable bilateral screening mammogram. Yearly follow-up mammogram recommended. (A) ASSESSMENT CATEGORY: BIRADS Category 2: Benign. A letter regarding these results will be sent to the patient by the facility within 30 days. Approximately 10% of breast cancers are not detected by mammography. A normal mammogram should not delay biopsy of a clinically suspicious abnormality. [id number] Electronically Signed: Hernan Cruz MD at 14:51 EST , Service support ,
== END 2021-03-10 23:59 | disposition short-term general hospital (02) ==
LOC: OPBI 14:01
PROVIDERS: PCP Family Medicine; Visit Provider Internal Medicine Hematology & Oncology
DX: Z12.31 Encounter for screening mammogram for malignant neoplasm of breast (principal); Z80.3 Family history of malignant neoplasm of breast; Z85.3 Personal history of malignant neoplasm of breast
CPT/HCPCS: 77063; 77067